=== PATIENT | female | born 1960 | race Caucasian/White ===

== ENCOUNTER 2022-03-31 09:27 | Emergency (ER) | payer OTHER, SELFPAY ==
[2022-03-31] VITALS (9 sets, daily range): BP systolic 87–149; BP diastolic 70–101; PULSE 77–88; RESP 16–18; TEMP 36.6; O2SAT 96–98
--- NOTE | ~2022-03-31 | XR_ITS ---
EXAMINATION: XR chest 1V portable DATE: 03/31/2022 10:05 INDICATION: Cough. Congestion. TECHNIQUE: A single frontal view of the chest was obtained. COMPARISON: Chest 2 views 10/05/2013, CT abdomen and pelvis 04/03/2014 FINDINGS: The chest demonstrates clear lungs without pneumonia, pleural effusion, or pneumothorax. Th e heart size is normal. Surgical clips in the right upper quadrant are likely from cholecystectomy. IMPRESSION: 1. No acute cardiopulmonary disease. Reviewed, dictated and finalized at location A.
--- NOTE | 2022-03-31 10:04 | ED.URI ---
HPI - URI/Sore Throat General Chief Complaint: Upper Respiratory Infection Stated Complaint: sore throat/cough Time Seen by Provider: 03/31/22 09:45 History of Present Illness HPI Narrative: 62-year-old female presents emergency room for evaluation of productive cough for 2 days. Patient states she has been taking cough drops that have not relieved her symptoms. Denies any shortness of breath or difficulty breathing or chest pain. Denies fever. Denies body aches. Patient also endorses sinus congestion and postnasal drip. Reports she has been clearing her throat, which she believes is the cause of her sore throat. has similar symptoms. Related Data Allergies Allergy/AdvReac Type Severity Reaction Status Date / Time codeine Allergy Unknown Nausea Verified 03/31/22 09:48 Contrast Media Allergy Unknown Unknown Uncoded 03/31/22 09:48 Review of Systems Review of Systems: CONSTITUTIONAL: Denies fever, chills, or sweats. EYES: Denies visual changes, redness, or discharge. ENT: Reports rhinorrhea, congestion, and sore throat CARDIOVASCULAR: Denies chest pain, palpitations, or edema. RESPIRATORY: Reports cough GASTROINTESTINAL: Denies abdominal pain, nausea, vomiting, or diarrhea. GENITOURINARY: Denies dysuria or hematuria. SKIN: Denies rash or itching. MUSCULOSKELETAL: Denies back pain, joint pain, or myalgia. NEUROLOGIC: Denies headache, numbness, dizziness, or weakness. PSYCHIATRIC: Denies anxiety or depression. Exam Narrative: GENERAL: Well-appearing, well-nourished, no physical limitations, and in no acute distress. HEAD: Normocephalic, atraumatic. EYES: Conjunctivae normal, PERRLA and EOMI. ENT: External nose normal, Nares clear, no rhinorrhea or epistaxis. Mucous membranes moist. Oropharynx without tonsillar hypertrophy exudate or other lesions. External ears normal, bilateral TMs normal bilaterally NECK: Supple. No adenopathy or masses. CHEST: Clear to auscultation. No respiratory distress. No wheezes rales or rhonchi. No tenderness. HEART: Regular rate and rhythm. No murmur heard. Normal peripheral pulses. EXTREMITIES: Normal range of motion. No edema. No clubbing or cyanosis SKIN: Warm, dry, no rash. No noted wounds NEURO: No focal deficits. Alert and oriented x3. MAEW. CN's II-XI intact bilaterally, normal gait PSYCH: Cooperative. Normal mood and affect. Course Vital Signs Vital signs: Vital Signs Temperature 36.6 C 03/31/22 09:40 Pulse Rate 88 03/31/22 09:40 Respiratory Rate 16 03/31/22 09:40 Blood Pressure 149/101 H 03/31/22 09:40 Pulse Oximetry 98 03/31/22 09:40 Oxygen Delivery Room Air 03/31/22 09:40 Temperature 36.6 C 03/31/22 09:40 Pulse Rate 77 03/31/22 11:51 Respiratory Rate 16 03/31/22 11:51 Blood Pressure 108/77 03/31/22 11:51 Pulse Oximetry 96 03/31/22 11:51 Oxygen Delivery Room Air 03/31/22 10:28 MDM - URI/Sore Throat Lab Data Labs: Lab Results 03/31/22 Range/Units 11:53 Influenza A (RT-PCR) Pending Influenza B (RT-PCR) Pending SARS-CoV-2 RNA (RT-PCR) Pending Discharge Plan Discharge Clinical Impression: COVID, Upper respiratory infection Patient Disposition: Home, Self-Care Condition: Stable Instructions: Antibiotic Form, Viral Syndrome (ED), COVID-19 (Coronavirus Disease 2019) (ED) Additional Instructions: Take medications as prescribed. Recommend isolating for the 7 days and Prescriptions: New anhctruqcuynyxt-WF-ereprvtubzp 30-10-200 mg tablet 1 cap PO Q4-6H PRN (Reason: cold symptoms) Qty: 20 0RF Follow-up/Referrals: [place], [Primary Care Provider] - Time of Disposition: 12:36
[2022-03-31 12:40] LABS: Influenza A QL RT-PCR Negative (Negative); Influenza B QL RT-PCR Negative (Negative); SARS-CoV-2 RNA PCR Positive
== END 2022-03-31 13:03 | disposition home or self-care (01) ==
PROVIDERS: Emergency Provider Nurse Practitioner Family
DX: U07.1 COVID-19 (principal)
CPT/HCPCS: 71045; 87502; 96372; 99283; C9803; J1100; U0003; U0005

== ENCOUNTER 2023-11-25 14:55 | Emergency (ER) | payer OTHER, SELFPAY ==
[2023-11-25 14:58] VITALS: BP 133/86; PULSE 92; RESP 16; TEMP 36.4; O2SAT 100
--- NOTE | 2023-11-25 17:28 | ED.EYEPROB ---
HPI - Eye Problem General Chief complaint: Eye Problems Stated complaint: BLURRED VISION Time Seen by Provider: 11/25/23 16:36 History of Present Illness HPI Narrative: patient is a 63-year-old female who presents ER with poor vision. It is in both eyes. Typically her vision is 20/30. Reports that she woke up with normal vision. About an hour and a half prior to arrival here she just spontaneously developed blurred vision bilaterally. She says it feels like she is looking through smoke. No flashers or floaters. No trauma to the eye. She is on no blood thinning medications. Has not had similar symptoms previously. Patient denies headache. No photophobia. Related Data Allergies Allergy/AdvReac Type Severity Reaction Status Date / Time codeine Allergy Unknown Nausea Verified 11/25/23 16:24 Contrast Media Allergy Unknown Itching Uncoded 11/25/23 15:05 Review of Systems Review of Systems: All systems reviewed & are unremarkable except as noted in HPI and below Eyes: Eyes: Reports change in vision and Denies photophobia Cardiovascular: Cardiovascular: Reports no additional cardiovascular complaints Respiratory: Respiratory: Reports no additional respiratory complaints [facility] Past Medical History Medical History (Updated 11/25/23 @ 18:08 by Maik Grubbs MD) Hypothyroidism Surgical History Surgical History (Updated 11/25/23 @ 18:08 by Maik Grubbs MD) H/O thyroidectomy Exam Narrative: GENERAL: Well-appearing, well-nourished, and in no acute distress. HEAD: Normocephalic, atraumatic. EYES: PERRLA and EOMI. Visual acuity 20/70 in bilateral eyes with correction. Right eye pressure 19 mmHg. Left eye pressure 23 mmHg. when using ophthalmoscope the internal aspect of each eye appears hazy and red and distinct vessels were not visualized. ENT: Mucous membranes moist. CHEST: Clear to auscultation. No respiratory distress. HEART: Regular rate and rhythm. Normal peripheral pulses. EXTREMITIES: Normal range of motion. No edema. NEURO: Alert and oriented x3. PSYCH: Normal mood and affect. Course Course Emergency Course: Discussed case with Dr. Bryant with ophthalmology at [facility]. We have discussed the patient's presentation as well as her exam. he feels the patient requires urgent follow-up in urgent care at 8:00 a.m. tomorrow morning for a thorough exam with and attending physician present. He feels as if her vision is stable no crashing given that she has not had continued to have progressive change. Patient feels comfortable with the treatment plan. She will be given the phone number as well as the clinic location so that she can arrive tomorrow. Vital Signs Vital signs: Vital Signs Temperature 97.6 F 11/25/23 14:58 Pulse Rate 92 11/25/23 14:58 Respiratory Rate 16 11/25/23 14:58 Blood Pressure 133/86 11/25/23 14:58 Pulse Oximetry 100 11/25/23 14:58 Temperature 97.6 F 11/25/23 14:58 Pulse Rate 92 11/25/23 14:58 Respiratory Rate 16 11/25/23 14:58 Blood Pressure 133/86 11/25/23 14:58 Pulse Oximetry 100 11/25/23 14:58 Discharge Plan Discharge Clinical Impression: Blurred vision Patient Disposition: Home, Self-Care Condition: Stable Instructions: Blurred Vision (ED) Additional Instructions: You need to follow-up with the [facility] credit processor tomorrow morning at 8a.m. If your vision worsens tonight or you have pain in your eye please go directly to the [facility] emergency room. The clinic address for tomorrow is as follows: [facility] [address] [place] [id number] Clinic Prescriptions: No Action aazthpucgestefm-JB-xmhvxqhmaoa 30-10-200 mg tablet 1 cap PO Q4-6H PRN (Reason: cold symptoms) Qty: 20 0RF Follow-up/Referrals: [facility], [Primary Care Provider] -
== END 2023-11-25 18:05 | disposition home or self-care (01) ==
PROVIDERS: Emergency Provider Emergency Medicine
DX: H53.8 Other visual disturbances (principal); E89.0 Postprocedural hypothyroidism
CPT/HCPCS: 99282